=== PATIENT | female | born 1970 | race Asian ===

== ENCOUNTER 2017-09-03 10:48 | Emergency (ER) | payer OTHER ==
[~2017-09-03] VITALS: Ht 152.4 cm; Wt 44.9 kg
[2017-09-03 11:29] LABS: PLATELET COUNT 171 K/uL (152-353)
[2017-09-03 11:51] LABS: POTASSIUM 5.1 mmol/L (3.6-5.2)
[2017-09-03 13:11] VITALS: BP 127/78; TEMP 98.2
== END 2017-09-03 13:14 | disposition home or self-care (01) ==
LOC: ED 10:48 → EDBD 10:48 → ED 13:14
PROVIDERS: Emergency Medicine
DX: F44.6 Conversion disorder with sensory symptom or deficit (principal)
CPT/HCPCS: 36415; 80053; 85027; 99283

== ENCOUNTER 2018-06-11 11:28 | Inpatient (IN) | payer OTHER ==
[~2018-06-11] VITALS: Ht 157.5 cm; Wt 48.3 kg
[2018-06-11 11:35] VITALS: BP 148/58; TEMP 97.2
[2018-06-11 12:00] LABS: PLATELET COUNT 157 K/uL (152-353)
[2018-06-11 12:17] LABS: SODIUM 139 mmol/L (136-145)
[2018-06-11 12:40] VITALS: BP 153/61
[2018-06-11 13:14] VITALS: BP 139/62
[2018-06-11] MEDS ORDERED: AMLO2.5T PO (15:25)
[2018-06-11] MEDS ORDERED: BRIMONIDINE0.2 % OPTH (15:26)
[2018-06-11] MEDS ORDERED: CALCIUM CARB500 MG PO (15:27)
[2018-06-11] MEDS ORDERED: CARV12.5 PO (15:27)
[2018-06-11] MEDS ORDERED: HYDR100TA PO (15:28)
[2018-06-11] MEDS ORDERED: LEVO0.0218 PO (15:30)
[2018-06-11] MEDS ORDERED: LATANOPROST0.005 % OPTH (15:30)
[2018-06-12] VITALS: BP 126/75; TEMP 98.6
[2018-06-12 04:00] VITALS: BP 182/69; TEMP 98.7
[2018-06-12 06:20] LABS: POTASSIUM 4.1 mmol/L (3.6-5.2)
[2018-06-12 06:24] LABS: PLATELET COUNT 166 K/uL (152-353)
[2018-06-12 08:00] VITALS: BP 187/63; TEMP 98.8
[2018-06-12 09:09] VITALS: BP 201/82; TEMP 98.9; Ht 157.5 cm; Wt 48.3 kg
== END 2018-06-12 12:25 | disposition home or self-care (01) | DRG 291 ==
LOC: ED 11:28 → MED/SURG 13:20
PROVIDERS: ADMIT Family Medicine
DX: I13.2 Hypertensive heart and chronic kidney disease with heart failure and with stage 5 chronic kidney disease, or end stage renal disease (principal); N18.6 End stage renal disease; Z99.2 Dependence on renal dialysis; H54.7 Unspecified visual loss; H40.89 Other specified glaucoma; E87.5 Hyperkalemia; E03.8 Other specified hypothyroidism
CPT/HCPCS: 36415; 80053; 82550; 83880; 84100; 84484; 85027; 93005; 96374; 96375; 99283; J1644; J2150

== ENCOUNTER 2018-06-19 09:36 | Emergency (ER) | payer OTHER ==
[~2018-06-19] VITALS: Ht 157.5 cm; Wt 51.3 kg
[~2018-06-19 09:36] MED LIST: AMLO2.5T PO; BRIMONIDINE0.2 % OPTH; CALCIUM CARB500 MG PO; CARV12.5 PO; HYDR100TA PO; LATANOPROST0.005 % OPTH; LEVO0.0218 PO
[2018-06-19 09:40] VITALS: TEMP 97.9
[2018-06-19 10:36] LABS: PLATELET COUNT 155 K/uL (152-353)
[2018-06-19 10:53] LABS: POTASSIUM 6.7 mmol/L (3.6-5.2)
[2018-06-19 12:00] VITALS: BP 168/62
== END 2018-06-19 17:57 | disposition home or self-care (01) ==
LOC: ED 09:36
PROVIDERS: Emergency Medicine
DX: N18.6 End stage renal disease (principal); Z99.2 Dependence on renal dialysis
CPT/HCPCS: 80053; 84100; 85027; 93005; 99283; G0257

== ENCOUNTER 2018-07-03 09:00 | Emergency (ER) | payer OTHER ==
[~2018-07-03] VITALS: Ht 157.5 cm; Wt 50.3 kg
[2018-07-03 10:06] LABS: PLATELET COUNT 166 K/uL (152-353)
[2018-07-03 10:47] LABS: PARTIAL THROMBOPLASTIN TIME 29.8 SECONDS (24.5-33.6)
[2018-07-03 11:39] VITALS: BP 127/54; TEMP 97
== END 2018-07-03 11:51 | disposition short-term general hospital (02) ==
LOC: ED 09:00
PROVIDERS: Emergency Medicine
DX: N18.6 End stage renal disease (principal); Z99.2 Dependence on renal dialysis
CPT/HCPCS: 80053; 81000; 85027; 85610; 85730; 87077; 87086; 87088; 87186; 93005; 99284

== ENCOUNTER 2018-07-03 12:04 | Outpatient (CLI) | payer OTHER | END 2018-07-03 13:20 | disposition short-term general hospital (02) | LOC: AMB 12:04 | DX: N18.6 End stage renal disease (principal); Z99.2 Dependence on renal dialysis | CPT/HCPCS: A0425; A0429 ==

== ENCOUNTER 2018-07-19 10:58 | Emergency (ER) | payer OTHER ==
[~2018-07-19] VITALS: Ht 157.5 cm; Wt 48.3 kg
[2018-07-19 11:50] LABS: PLATELET COUNT 216 K/uL (152-353)
[2018-07-19 12:18] LABS: POTASSIUM 6.9 mmol/L (3.6-5.2)
[2018-07-19 14:10] VITALS: BP 82/35; TEMP 97.7
== END 2018-07-19 14:10 | disposition short-term general hospital (02) ==
LOC: ED 10:58
PROVIDERS: Emergency Medicine
DX: E11.22 Type 2 diabetes mellitus with diabetic chronic kidney disease (principal); N18.6 End stage renal disease; Z99.2 Dependence on renal dialysis; Z91.15 Patient's noncompliance with renal dialysis; H54.7 Unspecified visual loss; E87.5 Hyperkalemia; I95.89 Other hypotension
CPT/HCPCS: 36415; 80053; 82550; 83735; 84484; 85027; 93005; 96361; 96365; 96375; 99285; J0610; J1265; J1815; J7060

== ENCOUNTER 2018-07-19 14:20 | Outpatient (CLI) | payer OTHER | END 2018-07-19 15:25 | disposition short-term general hospital (02) | LOC: AMB 14:20 | DX: E11.22 Type 2 diabetes mellitus with diabetic chronic kidney disease (principal); N18.6 End stage renal disease; Z99.2 Dependence on renal dialysis; Z91.15 Patient's noncompliance with renal dialysis; H54.7 Unspecified visual loss; E87.5 Hyperkalemia; I95.89 Other hypotension | CPT/HCPCS: A0425; A0427 ==